=== PATIENT | male | born 1955 | race Caucasian/White ===

== ENCOUNTER 2017-01-01 23:56 | Inpatient (IN) | payer OTHER ==
[~2017-01-01] VITALS: Ht 157.5 cm; Wt 64.6 kg
--- NOTE | 2017-01-02 00:11 | NUR ---
DR DODGE AT BEDSIDE FOR MSE
--- NOTE | 2017-01-02 00:31 | NUR ---
PT BIBA FOR CO DIZZINESS FOR 1.5 WEEKS PER MEDIC. PT HAS HX OF STAGE 4 ESOPHAGEAL CANCER. PER PT HE IS "ON AND OFF" HOSPICE. PT STS HE IS ON HOSPICE BUT NEEDS TO BE TAKEN OFF EVERY TIME THE CALLS 911. PER PT "EXTEND MY LIFE LONG POSSIBLE." HE STS HE IS NOT AFRAID TO BUT FEARS HIS WILL BECOME HOMELESS IF HE WERE TO . PT PRESENTS AAO4, RESP E/U, NAD NOTED. PT STS HE IS DIZZY UPON SITTING, DENIES BLOOD IN STOOL. PT IS PALE IN APPEARANCE. PER MEDIC BS IN FIELD WAS 96.
[2017-01-02 01:01] LABS: CALCIUM 9.3 mg/dL (8.5-10.1); CARBON DIOXIDE 25.2 mmol/L (21-32); CREATININE SERUM 1.4 mg/dL (0.7-1.3); POTASSIUM SERUM 3.6 mmol/L (3.5-5.1)
[2017-01-02 01:04] LABS: BILIRUBIN TOTAL 0.35 mg/dL (0.20-1.00); TOTAL PROTEIN, SERUM 7.7 g/dL (6.4-8.2)
[2017-01-02 01:05] LABS: ALBUMIN 2.3 g/dL (3.4-5.0)
[2017-01-02 01:17] LABS: BASOPHIL % 0.4 % (0-2)
[2017-01-02 01:18] LABS: RED CELL DISTRIBUTION WIDTH 16.3 % (11.5-14.5)
[2017-01-02 01:21] LABS: PLATELET COUNT 564 x10^3mcL (130-400)
--- NOTE | 2017-01-02 02:01 | NUR ---
PT STILL HASN'T PROVIDED URINE. 2ND LITER OF NS STARTED.
--- NOTE | 2017-01-02 02:30 | NUR ---
FIRST IV BOLUS COMPLETED INFUSION. SECOND BOLUS STILL INFUSING. IV SITE INTACT AND PATENT.
--- NOTE | 2017-01-02 03:03 | NUR ---
PT STILL UNABLE TO PROVIDE URINE; DR DODGE AWARE
--- NOTE | 2017-01-02 03:32 | NUR ---
PT IN GURNEY IN POSITION OF COMFORT, NAD NOTED AT THIS TIME. PT AAO4; RESP E/U; NAD NOTED AT THIS TIME
--- NOTE | 2017-01-02 04:04 | NUR ---
PT ABLE TO PROVIDE URINE; SPECIMEN PLACED IN LAB BIN
[2017-01-02] MEDS ORDERED: PEPCID20 MG PO (04:20)
[2017-01-02] MEDS ORDERED: NYSTATIN100000 U/M PO (04:20)
[2017-01-02 04:32] LABS: UA SPECIFIC GRAVITY 1.015 (1.005-1.035); microscopic required? YES; urine erythrocyte NEGATIVE (NEGATIVE)
[2017-01-02 04:36] LABS: AMPHETAMINE QUAL UR NONE DETECTED (NEG <=1000)
[2017-01-02 04:36] LABS: PHOSPHOROUS 2.9 mg/dL (2.5-4.9)
[2017-01-02] MEDS ORDERED: FAMOTIDINE40 MG/5 M1 PO (04:40)
--- NOTE | 2017-01-02 04:41 | NUR ---
RESIDENT AT BEDSIDE WITH PT. PT AAO4; RESP E/U; NAD NOTED AT THIS TIME. FLUIDS STILL INFUSING, IV PATENT.
[2017-01-02 04:42] LABS: T3 TOTAL 0.91 ng/mL
[2017-01-02 04:44] LABS: FREE T4 1.8 ng/dL (0.76-1.46); FREE THYROXINE INDEX 3.5 ug/dL (1.4-4.5); T4(THYROXINE) 9.8 ug/dL (4.7-13.3)
[2017-01-02 04:47] LABS: CHOLESTEROL/HDL RATIO 4.4
--- NOTE | 2017-01-02 04:58 | NUR ---
PT TO CT VIA ODETTE
--- NOTE | 2017-01-02 05:46 | NUR ---
PT IN ODETTE IN POSITION OF COMFORT WITH EVEN CHEST RISE AND FALL, NAD NOTED AT THIS TIME. CALL LIGHT WITHIN REACH
--- NOTE | 2017-01-02 06:32 | NUR ---
PT IN BED WITH EYES CLOSED; EVEN CHEST RISE AND FALL; RESP E/U; NAD NOTED
--- NOTE | 2017-01-02 07:10 | NUR ---
RECIEVED REPORT FROM YOSELIN RN, PT RESTING IN LOW POSITIONED BED, SIDE RAILS UP X2. 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
--- NOTE | 2017-01-02 07:50 | NUR ---
CALLED [facility] FOR BREAKFAST FOR PT FOR PUREED SPINASH, AND PUREED PEARS, PER PT REQUEST.
--- NOTE | 2017-01-02 08:20 | NUR ---
SPOKE WITH RADHA, PTS HOSPICE NURSE, INFORMED ME WILL WORK WITH SPOUSE TO GET PT SIGNED OFF FROM HOSPICE.
--- NOTE | 2017-01-02 08:40 | NUR ---
GAVE PT SPINASH PUREE AND PEARS PUREE.
--- NOTE | 2017-01-02 09:30 | NUR ---
PT SLEEPING IN LOW POSITIONED BED, SIDE RAILS UP X2, CALL LIGHT WITHIN REACH, VISIBLE CHEST RISE, PT AROUSABLE BY VERBAL STIMULUS. PT DENIES ANY NEEDS AT THIS TIME.
--- NOTE | 2017-01-02 10:30 | NUR ---
PTS HEAD OF BED LOWERED. PT RESUMES SLEEPING, NO FURTHER NEEDS REQUESTED.
--- NOTE | 2017-01-02 11:05 | NUR ---
PT REMAINS SL;EEPING, EASILY AROUSABLE BY VERBAL STIMULUS, PT DENIES ANY NEEDS AT THIS TIME. PT SIDE RAILS UP X2, CALL LIGHT WIHTIN REACH, PT REMAINS HOOKED TO FULL VEGETABLE FARMER, VITAL SIGNS ARE STABLE.
--- NOTE | 2017-01-02 12:37 | NUR ---
PTS SPOUSE AT BEDSIDE. PT DENIES ANY NEEDS AT THIS TIME.
--- NOTE | 2017-01-02 12:47 | NUR ---
REPORT CALLED TO IRWIN DAVIS, SHE WILL ASSUME CARE POST TRASNFER.
--- NOTE | 2017-01-02 13:10 | NUR ---
ADMITTED PT FROM ED. PT IS A/A/OX4 DENIES TIERNEY, RESP EVEN AND UNLABORED WITH CLEAR BS BILAT. DENIES ANY SOB/CP/PRESSURE AT THIS TIME. PLACED ON TELE #4 SHOWING NSR HR IN 90S. NO EDEMA NOTED WITH PALPABLE PERIPHERAL PULSES, WEAK PEDAL. SKIN COOL TO TOUCH AND PALE. WITH IV TO LFA. ABD SOFT, FLAT, NONTENDER WITH ACTIVE BS X4. DENIES ANY N/V AT THIS TIME. PT WITH HX ESOPHAGEAL CA STAGE 4, EATS A PUREED DIET. PT SPITS UP BROWNISH SPUTUM FREQUENTLY. DENIES ANY N/V AT THIS TIME. VOIDING FREELY. AMBULATORY WITH ASSISTANCE. ORIENTED TO ROOM AND CALL LIGHT SYSTEM. CALL LIGHT IN REACH.
[2017-01-02 13:17] VITALS: BP 123/70
--- NOTE | 2017-01-02 16:00 | NUR ---
PT REQUESTED FOR PEPCID ORDER TO BE CHANGE TO HOME DOSING PT TAKES MEDICATION TID. DR. WISEMAN MADE AWARE TO CHANGE DOSE.
[2017-01-02 17:43] VITALS: BP 112/71
--- NOTE | 2017-01-02 17:55 | NUR ---
PT TAKEN TO CT FOR EXAM. IV SL AND PATENT. WILL CONT TO MONITOR.
--- NOTE | 2017-01-02 18:20 | NUR ---
PT RESTING AT THIS TIME, DENIES ANY DISCOMFORT. CALL LIGHT IN REACH NEEDS ATTENDED TO.
--- NOTE | 2017-01-02 19:30 | NUR ---
RECEIVED REPORT FROM RYAN GAYLE. PT RESTING IN BED COMFORTABLY IN NO ACUTE DISTRESS OR DISCOMFORT. AAOX4. DENIES OF TIERNEY/DIZZINESS. ON TELE MON 4 SR. DENIES OF ANY CHEST DISCOMFORT. PER PULSES MOD. NEG ON EDEMA. IN RA WITH SAT OF 99%. BREATHING EVENLY AND UNLABORED. NO SOB NOTED. LUNGS CTA. BS ACTIVE. ABD SOFT AND NON DISTENDED. LAST BM 12/31/16 SOFT STOOL PER PT. VOIDS FREELY IN THE URINAL WITHOUT ANY PAIN. GEN WEAKNESS. AMB ASSIST. PT REPORTS OF USING CANE AT HOME. SKIN DRY AND INTACT. DENIES OF ANY PAIN. IV ON LFA PATENT. SAFETY MEASURES ENSURED. PT HAS HX OF ESOPHAGEAL CA AND HAS A SHUNT. PT INTERM SPITS UP DARK BROWN GASTRIC CONTENTS. INSTRUCTED PT TO CALL FOR ANY NEEDS/ASSISTANCE. CALL LIGHT WITHIN REACH. WILL CONT TO MONITOR PT.
[2017-01-02 21:46] VITALS: BP 115/71
--- NOTE | 2017-01-03 05:05 | NUR ---
PT SLEPT COMFORTABLY THROUGH OUT THE WHOLE NIGHT. WAS IN NO ACUTE DISTRESS OR DISCOMFORT. SAFETY MEASURES WERE ENSURED. CALL LIGHT WITHIN REACH.
[2017-01-03 06:49] VITALS: BP 110/69
[2017-01-03 07:12] LABS: BASOPHIL % 0.4 % (0-2); RED BLOOD CELLS 3.51 M/mm3 (4.52-5.90)
[2017-01-03 07:13] LABS: PLATELET COUNT 425 x10^3mcL (130-400); RED CELL DISTRIBUTION WIDTH 16.6 % (11.5-14.5)
--- NOTE | 2017-01-03 07:20 | NUR ---
RECEIVED PT IN BED A/A/OX4 DENIES TIERNEY. RESP EVEN AND UNLABORED WITH CLEAR BS BILAT. RESP EVEN AND UNLABORED WITH CLEAR BS BILAT. DENIES ANY CP/PRESSURE AT THIS TIME ST ON TELE HR 110. NO EDEMA NOTED WITH PALPABLE PERIPHERAL PULSES. SKIN COOL TO TOUCH. ABD SOFT, NONTENDER WITH ACTIVE BS X4. DENIES ANY N/V AT THIS TIME. PT WITH HX OF STAGE 4 ESOPHAGEAL CA. PT ON PUREED DIET, ABLE TO EAT SMALL AMOUNTS AT A TIME. PT FREQUENTLY SPITS UP DARK BROWN MUCOUSY DRAINAGE. AMBULATORY WITH ASSISTANCE. VOIDING FREELY. CALL LIGHT IN REACH NEEDS ATTENED TO.
[2017-01-03 07:21] LABS: CALCIUM 7.9 mg/dL (8.5-10.1); CARBON DIOXIDE 25.1 mmol/L (21-32); CHLORIDE SERUM 105 mmol/L (98-107); GFR1 > 60 mL/min; GLUCOSE SERUM 78 mg/dL (74-106); PHOSPHOROUS 3.1 mg/dL (2.5-4.9); POTASSIUM SERUM 3.3 mmol/L (3.5-5.1); SODIUM SERUM 138 mmol/L (136-145)
[2017-01-03 07:31] LABS: IRON 21 ug/dL (65-170); TOTAL IRON BINDING CAPACITY 170 ug/dL (250-450)
[2017-01-03 09:26] VITALS: BP 115/70
[2017-01-03 09:46] VITALS: Ht 157.5 cm; Wt 64.6 kg
--- NOTE | 2017-01-03 10:00 | NUR ---
SPOKE WITH PT'S WHO WAS CONCERN ABOUT D/C PLAN, REGARDIGN OF PT WILL RETURN WITH HOSPICE SERVICES AND ALSO ABOUT TRANSPORTATION HOME SINCE PT COULD NOT TOLERATE SITTING IN A CAR FOR EXTENDED PERIODS OF TIME. SPOKE WITH GAYE FROM CASE MANAGEMENT WHO STATED SHE WILL CONTACT [facility] AND SPEAK WITH THEM PT/ MADE AWARE WE WILL NOTIFY THEM OF THEIR RESPONSE.
--- NOTE | 2017-01-03 10:45 | NUR ---
MESSAGE SENT TO DR. ARROYO REGARDING K 3.3. WILL CONT TO MONITOR.
[2017-01-03] MEDS ORDERED: BACO TOP (11:40)
[2017-01-03] MEDS ORDERED: HIBICLENS118 ML TOP (11:41)
--- NOTE | 2017-01-03 11:52 | NUR ---
ECHOCARDIOGRAM COMPLETED.
[2017-01-03 12:53] VITALS: BP 115/71
[2017-01-03 15:22] VITALS: BP 115/71
--- NOTE | 2017-01-03 15:45 | NUR ---
PT REQUESTED FOR IV TO BE DISCONTINUED AT THIS TIME. STATED HE WANTED TO GET DRESS FOR UPCOMMING DISCHARGE.
--- NOTE | 2017-01-03 16:00 | NUR ---
MADE AWARE BY CASE MANAGEMENT THAT ARRANGEMENTS HAVE BEEN MADE FOR [facility] AT 2000 TONIGHT. PT MADE AWARE.
--- NOTE | 2017-01-03 16:42 | NUR ---
Initial Nutrition Assessment Dx: Disorder of ANS with dizziness and near syncope; Stage IV esophageal cancer PMHx: Stage IV esophageal CA, Esophageal candidiasis PSHx: Esophageal shunt Labs: K+ 3.3L, BG 76, Alb 2.3L, TRIG 160H, A1C 5.1, H/H 9.8/31L Meds: NS, heparin, colace, zofran, morphine Current Diet Order: Puree (01/02) PO Intakes: 40% (01/01), 80% (01/02) I/O:2100/0 (+300ml) Ht: 157cm,62". Wt: 141lbs, 64kg. BMI: 26.1 kg/m2 (Overweight) IBW: 118lb, 54kg. %IBW: 119%. UBW: pt unsure Age: 61 Y/O M Food Allergies: wheat, corn, beets, milk, carrots, yams, sweet potatoes, orange vegetables, string beans Skin: intact. Gilson:19 Edema: None noted GI: abd soft and flat, bowel sounds active. Last BM:1 soft (12/31) D.O Consult: esophageal Ca-malnutrition; RN trigger: appears underweight/malnourished, admitted w/ potential risk dx, poor PO intake >3 days, unable to ingest diet for age Pt admitted w/ Disorder of ANS with dizziness and near syncope; Stage IV esophageal cancer, seen at bedside w/ no family present, pt appeared to be tall and slim but no evident muscle or fat wasting noted, pt reports eating 80% of lunch today, likes puree but is very particular w/ how it is made, is allergic to a plethora of foods, denies GI issues, states only taking liquid meds d/t trouble passing crushed meds, is unsure of wt hx, has had extensive education on the foods he can eat and cannot, states he will be D/C in the evening today, the RD reviewed w/ pt on puree diet and making food preferences known, the pt verbalized understanding. Spoke to RN, confirms the pt will be D/C at 8pm today, is tolerating liquid meds, no BM during shift, states the pt will resume [facility] upon D/C. Problem with: N: None. V: None. D: none. C: None. Problem with: Chewing: None. Swallowing: None. Current Appetite: Good, just very particular w/ how the food is prepared Recent Weight Change: unable to assess. % Weight Change: unable to assess Vitamin/Supplement Use: none Diet at Home: 2 puree meals as prepared by Physical Activity: ambulates via cane Education: yes Estimated Nutritional Needs Based on IBW 118 lb, 54kg Energy: 9556-0225 kcal/day (30-35 kcal/kg for Esophageal CA) Protein: 65-81g/day (1.2-1.5 g/kg for Esophageal CA) Fluid: 9996-5872 ml/day (30-35 ml/kg for Esophageal CA) or per MD Nutrition Diagnosis 1. Increased protein and energy needs related to hypercatabolism as evidenced by pt w/ stage IV esophageal CA Intervention 1. C/W Regular Puree as per pt's food preference. Monitor/Evaluate Goal: PO intakes to meet at least 75% of estimated needs w/ tolerance Monitor: PO intakes/tolerance, labs, skin integrity, GI function, wt F/U in 3-5 days as MODERATE risk (01/06-01/08)
--- NOTE | 2017-01-03 16:42 | NUR ---
1. C/W Regular Puree as per pt's food preference.
--- NOTE | 2017-01-03 18:10 | NUR ---
PT RESTING COMFORTABLY AT THIS TIME. DENIES ANY DISCOMFORT AT THIS TIME. CALL LIGHT IN REACH. PT AWARE TRANSPORT TO [facility] AROUND 8PM TONIGHT. CALL LIGHT IN REACH NEEDS ATTENDED TO.
--- NOTE | 2017-01-03 18:50 | NUR ---
PT PROVIDED WITH D/C HOME INSTRUCTIONS. GIVEN MEDICATION/PRESCRIPTION EDUCATION. MADE AWARE TO F/U WITH PCP AND [facility] ONCE D/C'D. PT VERBALIZED UNDERSTANDING OF INSTRUCTIONS. PT TO AWAIT [facility]SPORTATION IMMIGRATION CONSULTANT LATER THIS EVENING. RETURN HOME MEDICATION FAMOTIDINE LIQUID FOR PT TO TAKE HOME.
--- NOTE | 2017-01-03 19:45 | NUR ---
DC AT THIS TIME VIA [email or web address] PAPERWORKS WITH HIM.ALLERGY BAND ON PER REQUEST.
[2017-01-04 08:09] LABS: TRANSFERRIN 136 mg/dL (200-370)
== END 2017-01-03 19:45 | disposition home or self-care (01) | DRG 48 ==
LOC: ED 23:56 → DU 01-02 02:49 → MU 01-03 11:18
PROVIDERS: Emergency Medicine; ADMIT Family Medicine
DX: G90.9 Disorder of the autonomic nervous system, unspecified (principal); N17.0 Acute kidney failure with tubular necrosis; E43 Unspecified severe protein-calorie malnutrition; B37.81 Candidal esophagitis; E87.8 Other disorders of electrolyte and fluid balance, not elsewhere classified; C15.9 Malignant neoplasm of esophagus, unspecified; E86.0 Dehydration; E78.2 Mixed hyperlipidemia; D47.3 Essential (hemorrhagic) thrombocythemia; D64.9 Anemia, unspecified; Z88.0 Allergy status to penicillin; Z88.5 Allergy status to narcotic agent
CPT/HCPCS: 83880; 84439; J1644; J7030; Q0092; Q9967

== ENCOUNTER 2017-01-09 09:17 | Inpatient (IN) | payer OTHER ==
[~2017-01-09] VITALS: Ht 188 cm; Wt 66.4 kg
[~2017-01-09 09:17] MED LIST: BACO TOP; FAMOTIDINE40 MG/5 M1 PO; HIBICLENS118 ML TOP; NYSTATIN100000 U/M PO; PEPCID20 MG PO
--- NOTE | 2017-01-09 09:23 | NUR ---
PT BIB [facility] FOR C/O OF FEELING GENERALLY WEAK X 3 DAYS AND DIFFICULTY SWALLOWING, PT REPORTS "I HAVE TROUBLE SWALLOW BUT I AM STILL ABLE TO EAT PUREE FOOD" PT HAS HX OF STAGE 4 ESOPHAGEAL CANCER, PT REPORTS HAD CHEMO ONCE IN THE PAST BUT REPORTS "I CAN'T HAVE CHEMO WITH TPN AND I CANT HAVE TPN WITH OUT PROTONIX SINCE IT MAKES MY STOMACH TURN AND FEEL LIKE A FOREST FIRE" REPORTS LAST HAD CHEMO 1-2 MONTHS PRIOR, APPROX 500 MLS NS GIVEN TELEVISION AGENT, PT REPORTS HX OF CIGARETTE SMOKING "ON AND OFF" PT DENIES SMOKING CURRENTLY, PT AAOX4, SPEAKS IN CLEAR AND COMPLETE SENTENCES, PER. DR. ORTIZ FOR PT TO COMPLETE NS FLUIDS THAT WERE STARTED TELEVISION AGENT, PT RESP EVEN AND UNLABORED, IN NO ACUTE DISTRESS, CALL LIGHT WTIN REACH, WILL CONTINUE TO MONITOR
--- NOTE | 2017-01-09 09:25 | NUR ---
DR. ORTIZ AT BEDSIDE FOR MSE
--- NOTE | 2017-01-09 09:46 | NUR ---
EKG IN PROGRESS, MEAGHAN, EMT AT BEDSIDE
--- NOTE | 2017-01-09 09:49 | NUR ---
IVF CURRENTLY INFUSING AT THIS TIME, PLEASE SEE EMAR, PT TOLERATED WELL, PT RESTING IN BED IN A POSITION OF COMFORT, ON FULL MONITORS, SIDE RAILS UPX2, RESP EVEN AND UNLABORED, IN NO ACUTE DISTRESS, CALL LIGHT WITHIN REACH, WILL CONTINUE TO MONITOR
[2017-01-09 09:50] LABS: BASOPHIL % 0.4 % (0-2)
[2017-01-09 09:52] LABS: PLATELET COUNT 492 x10^3mcL (130-400); RED CELL DISTRIBUTION WIDTH 17.4 % (11.5-14.5)
[2017-01-09 10:03] LABS: CALCIUM 8.4 mg/dL (8.5-10.1); CARBON DIOXIDE 26.5 mmol/L (21-32); CHLORIDE SERUM 101 mmol/L (98-107); GFR1 > 60 mL/min; GLUCOSE SERUM 83 mg/dL (74-106); POTASSIUM SERUM 3.5 mmol/L (3.5-5.1); SODIUM SERUM 139 mmol/L (136-145)
--- NOTE | 2017-01-09 10:03 | NUR ---
INST PT TO PROVIDE URINE SAMPLE SOON POSSIBLE, URINAL PROVIDED, PT VERBALIZED UNDERSTANDING, PT FAMILY MEMBER AT BEDSIDE, CALL LIGHT WITHIN REACH, WILL CONTINUE TO MONITOR
[2017-01-09 10:12] LABS: FREE T4 1.64 ng/dL (0.76-1.46); FREE THYROXINE INDEX 3.2 ug/dL (1.4-4.5); T4(THYROXINE) 8.5 ug/dL (4.7-13.3)
[2017-01-09 10:15] LABS: CK-MB < 0.5 ng/mL (0-3.6); CREATINE KINASE 106 U/L (39-308)
[2017-01-09 10:16] LABS: ALKALINE PHOSPHATASE 111 U/L (46-116); ALT/SGPT 7 U/L (16-63); AST/SGOT 33 U/L (15-37); BILIRUBIN TOTAL 0.4 mg/dL (0.20-1.00); C REACTIVE PROTEIN 8.6 mg/dL (<=0.9); TOTAL PROTEIN, SERUM 6.8 g/dL (6.4-8.2)
[2017-01-09 10:17] LABS: ALBUMIN 2.1 g/dL (3.4-5.0)
[2017-01-09 10:38] LABS: T3 TOTAL 0.93 ng/mL
[2017-01-09 10:47] LABS: ERYTHROCYTE SED RATE 83 mm/hr (0-20)
--- NOTE | 2017-01-09 10:49 | NUR ---
DR. ORTIZ AT BEDSIDE DISCUSSING POC WITH PT AND PTS FAMILY MEMBER AT BEDSIDE
--- NOTE | 2017-01-09 11:01 | NUR ---
IVF CURRENTLY INFUSING AT THIS TIME, PLEASE SEE EMAR, PT TOLERATED WELL, PT REPORTS "STILL CAN'T PEE I MUST BE THAT DEHYDRATED" INST PT TO PROVIDE URINE SAMPLE SOON POSSIBLE, PT VERBALIZED UNDERSTANDING, PT RESTING IN BED IN A POSITION OF COMFORT, RESP EVEN AND UNLABORED, IN NO ACUTE DISTRESS, CALL LIGHT WITHIN REACH, WILL CONTINUE TO MONITOR
--- NOTE | 2017-01-09 12:10 | NUR ---
SPOKE WITH MICHELLE DELACRUZ, CASE MANAGEMENT REGARDING TRANSPORTATION OF PT BACK HOME, PER MICHELLE SHE WILL CALL US BACK REGARDING UPDATE
--- NOTE | 2017-01-09 12:38 | NUR ---
PT RESTING IN BED IN A POSITION OF COMFORT, RESP EVEN AND UNLABORED, IN NO ACUTE DISTRESS, CALL LIGHT WITHIN REACH, WILL CONTINUE TO MONITOR
--- NOTE | 2017-01-09 13:02 | NUR ---
PILLOW PROVIDED FOR PT, PT READJUSTED IN BED FOR COMFORT, RESP EVEN UNLABORED, PT IN NO ACUTE DISTRESS, CALL LIGHT WITHIN REACH, WILL CONTINUE TO MONITOR
--- NOTE | 2017-01-09 13:45 | NUR ---
DR. ORTIZ SPEAKING WITH PTS AT THIS TIME REGARDING HER NEW CONCERNS OF WANTING PT TO NOW STAY IN THE HOSPTITAL INSTEAD OF DISCHARGING PT HOME TO FOLLOW UP WITH PCP WHICH PT AND PTS AGREED TO EARLIER AFTER PLAN OF CARE WAS DISCUSSED
--- NOTE | 2017-01-09 14:11 | NUR ---
WAS PRESENT DURING SPOKE MAKER & PRIMARY RN INFORMING PT AND HIS S.O. OF INTENT TO STAY IN E.D. FOR CONTINMUED TX. I ASSISTED TO REPOSITION PT AND UPDADTE V/S. WITH HOB FLAT PT ABLE TO REPOSITION SELF ALTHOUGH WEAK. HOB CURRENTLY @ 15-20 DEGREES UP HIS POSITION OF COMFORT. REMAINS ON MONITOR, RAILS UP, CALL LIGHT PRESENT. PANTS AND UNDERCLOTHING REMOVED IT WAS AROUND HIS ANKLES. PER PT REQUEST LEFT URINAL IN PLACE FOR REQUESTED UA TEST. ADVISED TO CALL FOR ASSIST IF URINAL BECOMES IRRATATION TO GENITALIA OR THIGHS.
--- NOTE | 2017-01-09 14:15 | NUR ---
LATE NOTE: PROVIDED PT'S WITH [employer] HE STATED DIFFICULTY OBTAING TRANSPORTATION FOR PMD APPOINTMENTS.
[2017-01-09 14:47] LABS: MAGNESIUM 2.2 mg/dL (1.8-2.4); PHOSPHOROUS 3.8 mg/dL (2.5-4.9)
[2017-01-09 14:48] LABS: CHOLESTEROL/HDL RATIO 4.1
--- NOTE | 2017-01-09 15:18 | NUR ---
LAB AT BEDSIDE FOR BLOOD DRAW
--- NOTE | 2017-01-09 17:04 | NUR ---
MICHELLE, CASE MANAGEMENT SPEAKING WITH PTS REGARDING OPTIONS FOR PT ON PALLIATIVE CARE
--- NOTE | 2017-01-09 17:14 | NUR ---
DR. ROUSSEAU, PALLIATIVE DOCTOR AND DR. DICKEY AT BEDSIDE SPEAKING WITH PT AND PTS AT BEDSIDE AT THIS TIME
--- NOTE | 2017-01-09 18:34 | NUR ---
SOCIAL SERVICE NOTE: FOLLOW UP REQUESTED BY ER. ATTEMPTED TO COME UP WITH A PALLIATIVE CARE PLAN AND ARRANGED FOR DR. COHEN TO ASSESS THE PT FOR A CARE PLAN. PT DECLINED HOSPICE BUT WAS AGREEABLE FOR HOME HEALTH FOR IV FLUIDS. WILL ARRANGE THIS ON THURSDAY. PER THE PT, HIS SISTER, RICK ONTIVEROS ([phone]) IS HIS DECISION MAKER. PT'S ASKED ME TO CONTACT THE SISTER TO CONFIRM IF THIS IS STILL CORRECT AND IF THERE IS A DPOA FORM. I CALLED THE SISTER AND SHE CONFIRMED THAT SHE IS HER BROTHER'S DECISION MAKER BUT HAS NO DPOA. SHE WILL FOLLOW-UP WITH THE PT TO ENCOURAGE GETTING THIS DONE. CONTINUE TO FOLLOW TO COMPLETE THE PLAN.
--- NOTE | 2017-01-09 18:40 | NUR ---
IV SITE TO LEFT AC WITH ANGIOCATH INTACT, BLEEDING CONTROLLED, NEW IV SITE ESTABLISHED TO RT FA 20 G, IVF CURRENTLY INFUSING AT THIS TIME WHICH HAS BEEN INCREASED WIDE OPEN FOR HYDRATION FOR PT PER STEFFEN, JUSTICE COURT DEPUTY CLERK, PT RESTING IN BED IN A POSITION OF COMFORT, PT STS FEELING A LOT BETTER, PT IN NO ACUTE DISTRESS, CALL LIGHT WITHIN REACH, WILL CONTINUE TO MONITOR
--- NOTE | 2017-01-09 19:10 | NUR ---
MEDICATION ADMINISTERED PER MD ORDER, PLEASE SEE EMAR, PT TOLERATED WELL, PROTONIX GIVEN SLOW IVP, PT RESTING IN BED IN A POSITION OF COMFORT, RESP EVEN AND UNLABORED, IN NO ACUTE DISTRESS, CALL LIGHT WITHIN REACH
--- NOTE | 2017-01-09 19:42 | NUR ---
PT SLEEPING ON GURNEY IN POSITION OF COMFORT, AROUSABLE TO VERBAL STIMULI. PT REMAINS ON FULL MONITORS. LIGHTS OFF IN PT'S ROOM PER HIS REQUEST FOR COMFORT. BED IN LOWEST POSITION, SIDE RAILS UP X 2, AND CALL LIGHT IN REACH. IVF INFUSING PER MD ORDERS. WILL CONTINUE TO MONITOR.
--- NOTE | 2017-01-09 21:51 | NUR ---
SPOKE W/ RESIDENT DR EARLY REGARDING PLAN OF CARE. PT WILL NOT BE GETTING PICC LINE TONIGHT, HOWEVER PT WILL BE ADMITTED FOR OBS AFTER MIDNIGHT.
--- NOTE | 2017-01-09 23:30 | NUR ---
REC'D PT IN BED IN L LATERAL POSITION. RESP E/U, NO SIGNS OF DISTRESS AT THIS TIME. PT CONNECTED TO FULL CM
--- NOTE | 2017-01-10 01:11 | NUR ---
REPORT GIVEN TO REINA TO ASSUME CARE OF PT
[2017-01-10 02:08] VITALS: BP 106/70
--- NOTE | 2017-01-10 02:08 | NUR ---
RECEIVED FROM ER VIA ODETTE, AWAKE, ALERT, ORIENTED X4. NO ACUTE DISTRESS, NOTED BREATHING EASY ON ROOM AIR. DENIES PAIN AT THIS TIME STS JUST SLIGHTLY DISCOMFORT TO STOMACH. GENERALIZED BODY WEAKNESS. ON PUREE DIET. NO EDEMA NOTED, PULSES PALPABLE. IV ACCESS TO RFA PATENT, IVF NS CONNECTED AND STARTED AT 100ML/HR. PLAN OF CARE DISCUSSED. CALL LIGHT PLACED WITHIN EASY REACH. SIDERAILS UP X2.
--- NOTE | 2017-01-10 05:45 | NUR ---
NO ANY DISTRESS THROUGHOUT SHIFT. VSS. DENIES ABDOMINAL PAIN. VOIDED VIA URINAL. IVF NS INFUSING WELL. ICE CHIPS GIVEN PER REQUESTED.
[2017-01-10 06:04] VITALS: BP 131/72
--- NOTE | 2017-01-10 07:20 | NUR ---
RECEIVED PT. IN BED A/A/O X3. NO SOB, NO N/V NOTED. DENIES ANY PAIN AT THIS TIME. NS RUNNING AT 100 CC/HR. VIA IV H/L AT R FA. 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 SCD TO BLE MAINTAINED. BED IN LOW POS., CALL LIGHT WITHIN REACH. SIDE RAILS UP X3.
--- NOTE | 2017-01-10 09:22 | NUR ---
DR. WATT, THE RESIDENTS, CHARGE NURSE, AND ATTENDING NURSE AT BEDSIDE. CAREPLAN DISCUSSED WITH PT. ALL QUESTIONS ANSWERED.
[2017-01-10 09:41] VITALS: BP 120/75
--- NOTE | 2017-01-10 09:45 | NUR ---
DR. MOLINA AND U/S TECH. AT BEDSIDE PERFORMING PICC LINE INSERTION.
--- NOTE | 2017-01-10 12:08 | NUR ---
PICC LINE INSERTION ATTEMPTED AT [facility]. UPPER ARMS BUT UNSUCCESSFUL PER DR. MOLINA (DO WINDSCREEN FITTER).
[2017-01-10 13:17] VITALS: BP 104/61
--- NOTE | 2017-01-10 15:24 | NUR ---
URINE COLLECTED AND SENT TO LAB. FOR UA, URINE C/S, AND UDS.
[2017-01-10 15:35] LABS: microscopic required? YES; urine erythrocyte NEGATIVE (NEGATIVE)
[2017-01-10 15:42] LABS: AMPHETAMINE QUAL UR NONE DETECTED (NEG <=1000)
[2017-01-10 16:32] VITALS: BP 122/78
--- NOTE | 2017-01-10 17:09 | NUR ---
REMAINS IN STABLE CONDITION AT THIS TIME. NO ACUTE DISTRESS NOTED.
--- NOTE | 2017-01-10 20:15 | NUR ---
SEEN ASLEEP, AROUSABLE, NO RESP DISTRESS NOTED ON ROOM AIR. ST AT 102 WITH DEPRESSED T, DENIES PAIN. LUNG SOUND CTA. PALE SKIN, WARM TO TOUCH. ON PUREE DIET. STS VOIDS FREELY, URINAL PROVIDED AT BEDSIDE. IVF NS INFUSING WELL AT 100ML/HR TO RFA IV SITE. SCD TO BLE MAINTAINED. CONTACT ISOLATION MAINTAINED.
[2017-01-10 21:42] VITALS: BP 128/80
--- NOTE | 2017-01-11 05:31 | NUR ---
NO ANY DISTRESS THROUGHOUT SHIFT. VSS. DENIES PAIN. ABLE TO AMBULATE TO BATHROOM WITH SLOW BUT STEADY GAIT, STS VOIDED X2. IVF NS CONTINUED AT 120ML/HR TO RFA IV SITE.
[2017-01-11 06:08] VITALS: BP 116/72
[2017-01-11 06:39] LABS: BASOPHIL % 0.5 % (0-2)
[2017-01-11 06:50] LABS: PLATELET COUNT 434 x10^3mcL (130-400); RED CELL DISTRIBUTION WIDTH 17.3 % (11.5-14.5)
[2017-01-11 07:04] LABS: CALCIUM 7.8 mg/dL (8.5-10.1); CARBON DIOXIDE 22.1 mmol/L (21-32); CHLORIDE SERUM 107 mmol/L (98-107); CREATININE SERUM 0.8 mg/dL (0.7-1.3); GFR1 > 60 mL/min; GLUCOSE SERUM 71 mg/dL (74-106); MAGNESIUM 1.9 mg/dL (1.8-2.4); PHOSPHOROUS 2.2 mg/dL (2.5-4.9); POTASSIUM SERUM 3.1 mmol/L (3.5-5.1); SODIUM SERUM 139 mmol/L (136-145)
--- NOTE | 2017-01-11 07:15 | NUR ---
PT IN BED. LOW FOWLERS. AWAKE, [id number] OF CARE. ABLE TO LET NEEDS KNOWN. EFFORTLESS BREATHING ON ROOM AIR. DENIES PAIN AT MOMENT. IV INFUSING WELL TO RFA. BED IN LOWEST POSITION, CALL LIGHT WITHIN REACH.
[2017-01-11 09:14] VITALS: BP 122/74
--- NOTE | 2017-01-11 10:57 | NUR ---
CALLED TO (RESIDENT) ASSIGNED TO THIS PT TO VERIFY TIME OF DISCHARGE HOME AND HE SAID AROUND 1300. CALLED TO [facility] TRANSPORT AND HERE NAME RIAZ AND REQUESTED [facility] AND MADE HER AWARE THAT I WILL CALL THE TRANSPORT AND SHE NEEDS TO PROVIDE HER CREDIT CARD TO [place] AND SHE SAID OKAY, FERMIN RN ASSIGNED TO THIS PT WITH ME IN THE ROOM AND AWARE OF ABOVE. [facility] CALL[facility] AND PROVIDED HER CREDIT CARD FOR THE TRANSPORTATION PAYMENT.
[2017-01-11 12:36] VITALS: BP 121/76
[2017-01-11 13:15] VITALS: BP 121/76
--- NOTE | 2017-01-11 14:10 | NUR ---
DISCHARGE INSTRUCTIONS GIVEN TO PATIENT. PT VERBALIZED UNDERSTANDING FOR FOLLOW-UP APPOINTMENT WITH PCP. IV DC'D CATHETER INTACT, NO PHLEBITIS. TELE BOX REMOVED. PT BEING TRANSPORTED BY [facility]IA [facility].
== END 2017-01-11 14:10 | disposition hospice, home (50) | DRG 240 ==
LOC: ED 09:17 → DU 01-10 00:25
PROVIDERS: Family Medicine; Specialist; ADMIT Family Medicine
PROC: 02HV33Z Insertion of Infusion Device into Superior Vena Cava, Percutaneous Approach (ICD-10-PCS; principal; 2017-01-10)
PROC: B548ZZA Ultrasonography of Superior Vena Cava, Guidance (ICD-10-PCS; 2017-01-10)
DX: C15.9 Malignant neoplasm of esophagus, unspecified (principal); N17.0 Acute kidney failure with tubular necrosis; E43 Unspecified severe protein-calorie malnutrition; R13.10 Dysphagia, unspecified; B37.81 Candidal esophagitis; R62.7 Adult failure to thrive; Z96.89 Presence of other specified functional implants; D64.9 Anemia, unspecified; D47.3 Essential (hemorrhagic) thrombocythemia; Z88.0 Allergy status to penicillin; Z68.1 Body mass index [BMI] 19.9 or less, adult; Z92.21 Personal history of antineoplastic chemotherapy; Z88.5 Allergy status to narcotic agent; R80.9 Proteinuria, unspecified
CPT/HCPCS: 83880; 84439; C1751; C9113; J1642; J2001; J2060; J3411; J3475; J3490; J7030; Q0092

== ENCOUNTER 2017-01-30 12:47 | Inpatient (IN) | payer OTHER ==
[~2017-01-30] VITALS: Ht 188 cm; Wt 58.9 kg
[2017-01-30 14:06] LABS: BASOPHIL % 0.1 % (0-2)
[2017-01-30] MEDS ORDERED: PEPCID20 MG (14:23)
[2017-01-30 14:28] LABS: RED CELL DISTRIBUTION WIDTH 19.4 % (11.5-14.5)
[2017-01-30 14:43] LABS: rbc morphology (normal/abnorm) ABNORMAL (NORMAL)
[2017-01-30 14:44] LABS: PLATELET COUNT 453 x10^3mcL (130-400)
[2017-01-30 15:08] LABS: BILIRUBIN TOTAL 0.5 mg/dL (0.20-1.00); CREATININE SERUM 1.5 mg/dL (0.7-1.3)
[2017-01-30 15:09] LABS: ALBUMIN 1.3 g/dL (3.4-5.0); POTASSIUM SERUM 2.3 mmol/L (3.5-5.1); TOTAL PROTEIN, SERUM 6.1 g/dL (6.4-8.2)
[2017-01-30 16:12] LABS: T3 TOTAL 0.33 ng/mL
[2017-01-30 16:13] LABS: MAGNESIUM 2.4 mg/dL (1.8-2.4); PHOSPHOROUS 3.5 mg/dL (2.5-4.9)
[2017-01-30 16:16] LABS: FREE T4 1.13 ng/dL (0.76-1.46); FREE THYROXINE INDEX 1.8 ug/dL (1.4-4.5); T4(THYROXINE) 4.7 ug/dL (4.7-13.3)
[2017-01-30 16:28] LABS: CHOLESTEROL/HDL RATIO 8.6
[2017-01-30 17:22] VITALS: BP 110/59
[2017-01-30 19:15] VITALS: BP 113/72
[2017-01-30 20:55] LABS: CALCIUM 6.5 mg/dL (8.5-10.1); CARBON DIOXIDE 31.6 mmol/L (21-32); CHLORIDE SERUM 99 mmol/L (98-107); CREATININE SERUM 1.1 mg/dL (0.7-1.3); GFR1 > 60 mL/min; GLUCOSE SERUM 77 mg/dL (74-106); SODIUM SERUM 136 mmol/L (136-145)
[2017-01-30 20:56] LABS: POTASSIUM SERUM 2.9 mmol/L (3.5-5.1)
[2017-01-30 21:29] LABS: microscopic required? YES; urine erythrocyte 3+ (NEGATIVE)
[2017-01-30 21:47] LABS: AMPHETAMINE QUAL UR NONE DETECTED (NEG <=1000)
[2017-01-30 22:00] LABS: BASOPHIL % 0.2 % (0-2); PLATELET COUNT 327 x10^3mcL (130-400)
[2017-01-30 22:02] LABS: RED CELL DISTRIBUTION WIDTH 18.8 % (11.5-14.5)
[2017-01-30 22:04] LABS: rbc morphology (normal/abnorm) ABNORMAL (NORMAL)
[2017-01-30 22:41] LABS: IRON 13 ug/dL (65-170); TOTAL IRON BINDING CAPACITY 114 ug/dL (250-450)
[2017-01-30 22:57] LABS: RED BLOOD CELLS 2.27 M/mm3 (4.52-5.90)
[2017-01-30 23:45] VITALS: BP 108/70
[2017-01-31 03:45] VITALS: BP 105/92
[2017-01-31 05:28] LABS: PLATELET COUNT 343 x10^3mcL (130-400)
[2017-01-31 05:30] LABS: CALCIUM 6.4 mg/dL (8.5-10.1); CARBON DIOXIDE 31.5 mmol/L (21-32); CHLORIDE SERUM 102 mmol/L (98-107); CREATININE SERUM 1.2 mg/dL (0.7-1.3); GFR1 > 60 mL/min; GLUCOSE SERUM 103 mg/dL (74-106); MAGNESIUM 2.5 mg/dL (1.8-2.4); PHOSPHOROUS 2.8 mg/dL (2.5-4.9); POTASSIUM SERUM 3.1 mmol/L (3.5-5.1); SODIUM SERUM 143 mmol/L (136-145)
[2017-01-31 06:13] LABS: RED CELL DISTRIBUTION WIDTH 18.6 % (11.5-14.5)
[2017-01-31 06:15] LABS: BAND NEUTROPHIL 5 % (0-10); BASOPHIL 0 % (0-2); MONOCYTE 3 % (0-7); PLATELET MORPHOLOGY PLATELETS NORMAL; SEGMENTED NEUTROPHILS 84 % (37-75); rbc morphology (normal/abnorm) ABNORMAL (NORMAL); target cell (codocyte) 2+
[2017-01-31 07:30] VITALS: BP 112/72
[2017-01-31 11:00] VITALS: BP 111/71
[2017-01-31 15:00] VITALS: BP 117/74
[2017-01-31 16:46] VITALS: Ht 188 cm; Wt 58.9 kg
[2017-01-31 19:15] VITALS: BP 108/68
[2017-01-31 23:45] VITALS: BP 106/69
[2017-02-01 03:45] VITALS: BP 115/70
[2017-02-01 05:33] LABS: PLATELET COUNT 365 x10^3mcL (130-400)
[2017-02-01 05:36] LABS: CALCIUM 6.4 mg/dL (8.5-10.1); CARBON DIOXIDE 30.7 mmol/L (21-32); CHLORIDE SERUM 102 mmol/L (98-107); CREATININE SERUM 1.2 mg/dL (0.7-1.3); GFR1 > 60 mL/min; GLUCOSE SERUM 80 mg/dL (74-106); MAGNESIUM 1.9 mg/dL (1.8-2.4); RED CELL DISTRIBUTION WIDTH 18.9 % (11.5-14.5); SODIUM SERUM 145 mmol/L (136-145)
[2017-02-01 05:43] LABS: POTASSIUM SERUM 2.3 mmol/L (3.5-5.1)
[2017-02-01 05:58] LABS: BAND NEUTROPHIL 0 % (0-10); BASOPHIL 0 % (0-2); MONOCYTE 3 % (0-7); SEGMENTED NEUTROPHILS 88 % (37-75)
[2017-02-01 06:00] LABS: rbc morphology (normal/abnorm) ABNORMAL (NORMAL)
[2017-02-01 06:01] LABS: PLATELET MORPHOLOGY PLATELETS NORMAL; target cell (codocyte) 1+
[2017-02-01 07:30] VITALS: BP 111/74
[2017-02-01 11:30] VITALS: BP 110/67
[2017-02-01 15:10] VITALS: BP 112/75
[2017-02-01 17:19] LABS: CALCIUM 6.3 mg/dL (8.5-10.1); CARBON DIOXIDE 30.6 mmol/L (21-32); CREATININE SERUM 1.3 mg/dL (0.7-1.3)
[2017-02-01 17:27] LABS: POTASSIUM SERUM 2.5 mmol/L (3.5-5.1)
[2017-02-01 17:57] VITALS: BP 105/65
[2017-02-01 21:20] VITALS: BP 104/71
[2017-02-02 06:10] LABS: PLATELET COUNT 387 x10^3mcL (130-400)
[2017-02-02 06:17] VITALS: BP 110/70
[2017-02-02 06:28] LABS: BILIRUBIN TOTAL 0.6 mg/dL (0.20-1.00); CALCIUM 6.8 mg/dL (8.5-10.1); CARBON DIOXIDE 27.6 mmol/L (21-32); CREATININE SERUM 1.3 mg/dL (0.7-1.3)
[2017-02-02 06:39] LABS: ALBUMIN 1.2 g/dL (3.4-5.0); POTASSIUM SERUM 2.6 mmol/L (3.5-5.1); TOTAL PROTEIN, SERUM 5.6 g/dL (6.4-8.2)
[2017-02-02 07:09] LABS: RED CELL DISTRIBUTION WIDTH 18.9 % (11.5-14.5)
[2017-02-02 07:59] VITALS: BP 109/69
[2017-02-02 09:04] LABS: BAND NEUTROPHIL 4 % (0-10); BASOPHIL 0 % (0-2); MONOCYTE 2 % (0-7); SEGMENTED NEUTROPHILS 90 % (37-75)
[2017-02-02 09:05] LABS: PLATELET MORPHOLOGY PLATELETS NORMAL; rbc morphology (normal/abnorm) ABNORMAL (NORMAL)
[2017-02-02 13:36] VITALS: BP 105/75
[2017-02-02 17:49] VITALS: BP 99/66
[2017-02-02 21:30] VITALS: BP 110/77
[2017-02-03 05:00] VITALS: BP 124/85
[2017-02-03 07:10] LABS: CALCIUM 7.2 mg/dL (8.5-10.1); CARBON DIOXIDE 26.1 mmol/L (21-32); CHLORIDE SERUM 103 mmol/L (98-107); CREATININE SERUM 1.2 mg/dL (0.7-1.3); GFR1 > 60 mL/min; GLUCOSE SERUM 73 mg/dL (74-106); MAGNESIUM 1.7 mg/dL (1.8-2.4); PHOSPHOROUS 3.9 mg/dL (2.5-4.9); SODIUM SERUM 143 mmol/L (136-145)
[2017-02-03 07:26] LABS: POTASSIUM SERUM 2.7 mmol/L (3.5-5.1)
[2017-02-03 08:21] LABS: PLATELET COUNT 346 x10^3mcL (130-400); RED CELL DISTRIBUTION WIDTH 19.5 % (11.5-14.5)
[2017-02-03 09:14] LABS: ATYPICAL LYMPH 1 %; BAND NEUTROPHIL 3 % (0-10); BASOPHIL 0 % (0-2); MONOCYTE 3 % (0-7); SEGMENTED NEUTROPHILS 90 % (37-75)
[2017-02-03 09:16] LABS: PLATELET MORPHOLOGY PLATELETS NORMAL; rbc morphology (normal/abnorm) ABNORMAL (NORMAL); schistocyte (helmet cell) 1+
[2017-02-03 09:18] VITALS: BP 116/78
[2017-02-03] MEDS ORDERED: BACO TOP (10:10)
[2017-02-03] MEDS ORDERED: HIBICLENS118 ML TOP (10:11)
[2017-02-03 11:36] VITALS: BP 116/78
[2017-02-03] MEDS ORDERED: ZYVOX600 MG PO (12:27)
[2017-02-03] MEDS ORDERED: FLA500 PO (12:27)
[2017-02-03] MEDS ORDERED: LAC PO (12:27)
== END 2017-02-03 13:00 | disposition hospice, home (50) | DRG 710 ==
LOC: ED 12:47 → IC 14:44 → DU 14:44 → MU 16:09 → IC 16:10 → DU 02-01 14:53 → MU 02-03 06:23
PROVIDERS: Internal Medicine; Specialist; ADMIT Family Medicine
PROC: 30233N1 Transfusion of Nonautologous Red Blood Cells into Peripheral Vein, Percutaneous Approach (ICD-10-PCS; 2017-01-30)
PROC: 0DW Gastrointestinal System, Revision (ICD-10-PCS; principal; 2017-02-01 07:30)
DX: A41.9 Sepsis, unspecified organism (principal); N17.0 Acute kidney failure with tubular necrosis; E43 Unspecified severe protein-calorie malnutrition; G93.41 Metabolic encephalopathy; L89.151 Pressure ulcer of sacral region, stage 1; K92.0 Hematemesis; C15.9 Malignant neoplasm of esophagus, unspecified; E86.0 Dehydration; D62 Acute posthemorrhagic anemia; R62.7 Adult failure to thrive; K92.1 Melena; E78.5 Hyperlipidemia, unspecified; Z68.1 Body mass index [BMI] 19.9 or less, adult; Z22.322 Carrier or suspected carrier of Methicillin resistant Staphylococcus aureus; Z66 Do not resuscitate; Z51.5 Encounter for palliative care; Z88.0 Allergy status to penicillin; Z88.2 Allergy status to sulfonamides; Z88.6 Allergy status to analgesic agent; Z88.8 Allergy status to other drugs, medicaments and biological substances; D47.3 Essential (hemorrhagic) thrombocythemia; K11.20 Sialoadenitis, unspecified; E83.51 Hypocalcemia; R65.20 Severe sepsis without septic shock
CPT/HCPCS: 43235; 83880; 84439; C1758; C9113; J1200; J1610; J1956; J2250; J2310; J2354; J2916; J3010; J3370; J3475; J3480; J3490; J7030; J7050; P9016; Q0092; Q9967